=== PATIENT | male | born 1995 | race Caucasian/White ===

== ENCOUNTER 2017-04-08 08:36 | Day surgery (SDC) | payer OTHER ==
[~2017-04-08] VITALS: Ht 177.8 cm; Wt 86.2 kg
[~2017-04-08 08:36] MED LIST: FISH100049 PO; MULT1CHW39 PO
[2017-04-08] MEDS ORDERED: LR 1,000 ML IV SCH ×2 (08:45→15:15)
[2017-04-08] MEDS ORDERED: LIDOCAINE 1% SDV 5 ML VIAL SC ONE (09:00)
[2017-04-08] MEDS ORDERED: PROPOFOL 200 MG/20 ML VIAL As Ordered ONE ×2 (12:14→13:43)
[2017-04-08] MEDS ORDERED: SUCCINYLCHOLINE 100 MG/5 ML SYRINGE (J0330) As Ordered ONE (12:14)
[2017-04-08] MEDS ORDERED: dexameTHASONE 4 MG/ML 1ML VIAL (J1100) As Ordered ONE (12:14)
[2017-04-08] MEDS ORDERED: LIDOCAINE 2% INJ 100 MG/5 ML SDV (FOR ANES.) As Ordered ONE (12:14)
[2017-04-08] MEDS ORDERED: ONDANSETRON 4MG/2ML VIAL (J2405) As Ordered ONE ×2 (12:14→14:58)
[2017-04-08] MEDS ORDERED: VECURONIUM BROMIDE 10 MG VIAL As Ordered ONE (12:14)
[2017-04-08] MEDS ORDERED: fentaNYL 100 MCG/2 ML INJECTION (J3010) As Ordered ONE ×2 (12:15→13:55)
[2017-04-08] MEDS ORDERED: MIDAZOLAM INJ 2 MG/2 ML VIAL (J2250) As Ordered ONE (12:16)
[2017-04-08] MEDS ORDERED: OXYMETAZOLINE NASAL SPRAY (AFRIN) As Ordered ONE (13:10)
[2017-04-08] MEDS ORDERED: METHYLENE BLUE 0.5% (5MG/ML) 10 ML AMP (PROVAYBLUE)(Q9968 PER 1MG) As Ordered ONE (13:10)
[2017-04-08] MEDS ORDERED: LIDOCAINE W/EPINEPHRINE 1% 20ML VIAL As Ordered ONE (13:10)
[2017-04-08] MEDS ORDERED: DESFLURANE 240 ML INHALANT As Ordered ONE (14:01)
[2017-04-08] MEDS ORDERED: SEVOFLURANE INHAL SOLN 250 ML BTL As Ordered ONE (14:02)
[2017-04-08] MEDS ORDERED: PERCOCET 5MG/325MG TAB As Ordered ONE (14:58)
[2017-04-08] MEDS ORDERED: HYDROmorphone HCL 1 MG/ML SYRINGE (J1170) As Ordered ONE (14:58)
[2017-04-08] MEDS: HYDROmorphone HCL 1 MG/ML SYRINGE (J1170) IV PRN ×3 (15:00→15:30)
[2017-04-08] MEDS: PERCOCET 5MG/325MG TAB PO PRN ×2 (15:00→15:39)
[2017-04-08] MEDS ORDERED: IBUPROFEN 800 MG TAB PO PRN (15:15)
[2017-04-08] MEDS ORDERED: ONDANSETRON 4MG/2ML VIAL (J2405) IV PRN (15:15)
[2017-04-08] MEDS ORDERED: PERCOCET 5MG/325MG TAB PO PRN (15:15)
[2017-04-08] MEDS ORDERED: ONDANSETRON 4 MG TAB (S0181) PO PRN (15:15)
[2017-04-08] MEDS ORDERED: fentaNYL 100 MCG/2 ML INJECTION (J3010) IV PRN (15:15)
[2017-04-08 17:11] VITALS: BP 159/74
--- NOTE | 2017-04-11 19:30 | RO ---
DATE OF PROCEDURE: 04/08/2017 PREPROCEDURE DIAGNOSIS: Deviated septum, hypertrophic turbinates. POSTPROCEDURE DIAGNOSIS: Deviated septum, hypertrophic turbinates. PROCEDURE: Septoplasty, partial reduction inferior turbinates. SURGEON: Dr. Javier Roman. TATTOO ARTIST: ANESTHESIA: ESTIMATED BLOOD LOSS: INDICATION: This is a 20-year old who presents with long standing nasal obstruction. PROCEDURE: With satisfactory general endotracheal anesthesia administered, we inserted a pharyngeal pack. Nose was prepared for surgery. I placed some cotton soaked pledgets with Afrin solution to the nasal cavity bilaterally. 1% Xylocaine with 1:100,000 epinephrine was used to inject the nasal septum inferior turbinates. A Leadore incision was made on the left side of the nose. A mucoperichondrial flap and envelope was created on the left side of the nasal septum and carried down to the junction of the bony and cartilaginous septum. This was then with an elevator, and an envelope was then created on the right side of the septum. A Gabi scissors was used to make a cut high in the perpendicular plate in the midportion of the vomer, and a central segment of the bony septum was resected. Next, with the round knife on the Jerman elevator, a strip of cartilage was resected from the floor of the nose, mobilizing the quadrilateral cartilage and creating a swinging door. Then, a central segment of cartilaginous septum was resected, preserving a 1 cm dorsal and caudal strut. Double-action rongeur was used to take down deflected portions of the perpendicular plate, as well. Finally, the maxillary crest spur was taken down after elevating mucoperiosteum off both sides of it with a chisel. A segment of the resected cartilage was morselized and placed back into the septal envelope. The incision was closed using an interrupted #5-0 chromic suture. Then, a #4-0 plain suture was placed in a [id number] fashion through the two leaves of mucoperichondrium to appose them. Next, the inferior turbinates were medially infractured. A #15 blade was used to make an incision on the anterior tip of the inferior turbinate. With a Jerman elevator, a mucoperiosteal tunnel was created on the medial side of the turbinate. Then, the microdebrider with a 2.9 mm blade was inserted into the tunnel, and the underlying turbinate bone was weakened and partially resected using the microdebrider. Then, the turbinate was laterally outfractured. The posteroinferior tip of the turbinate was then cauterized with suction cautery. Finally, Ribeiro splints were placed into the nose and sewn to the columella with a #2-0 Prolene suture. The pharyngeal pack, which had been placed at the beginning of the procedure was removed, the throat was suctioned. The patient was then awakened, extubated, and sent to recovery in satisfactory condition. He will be discharged home on Percocet for pain and doxycycline 100 mg twice a day. He will be seen back in the office in 3 days for splint removal.
[2017-07-13] MEDS ORDERED: NAPR500T3 PO (23:15)
== END 2017-04-08 17:15 | disposition home or self-care (01) ==
LOC: M SDC 08:36
PROVIDERS: ATTEND Specialist
DX: J34.2 Deviated nasal septum (principal); J34.3 Hypertrophy of nasal turbinates; F17.220 Nicotine dependence, chewing tobacco, uncomplicated
CPT/HCPCS: 30140; 30520; 88300; J0330; J1100; J1170; J2250; J2405; J3010; Q9968

== ENCOUNTER 2017-10-04 12:18 | Emergency (ER) | payer OTHER ==
[2017-10-04] MEDS: IBUPROFEN 600 MG TAB PO (14:59)
== END 2017-10-04 16:23 | disposition short-term general hospital (02) ==
LOC: M ED 12:18
DX: S06.0X0A Concussion without loss of consciousness, initial encounter (principal); S05.92XA Unspecified injury of left eye and orbit, initial encounter; J32.9 Chronic sinusitis, unspecified; Y04.8XXA Assault by other bodily force, initial encounter; Y92.133 Barracks on military base as the place of occurrence of the external cause; F17.220 Nicotine dependence, chewing tobacco, uncomplicated
CPT/HCPCS: 70450